=== PATIENT | female | born 1935 | race Caucasian/White ===

== ENCOUNTER → 2016-08-27 | Outpatient (CLI) | payer MEDICARE, OTHER ==
[~2016-08-27] MED LIST: BACTRIM DS 8001 TA1 PO; CLARITIN10 MG PO; DAYPRO600 M1 PO; INDOCIN25 MG PO; KEFLEX500 MG PO; LEVOFLOXACIN500 MG PO; MEDROL DOSEPAK4 MG PO; MOTRIN600 MG PO; NAPROSYN250 MG PO; PREDNICOT20 MG PO; ROBAXIN750 MG PO
== END | disposition home or self-care (01) ==
LOC: RAD 08:23
DX: S32.040A Wedge compression fracture of fourth lumbar vertebra, initial encounter for closed fracture (principal); M43.16 Spondylolisthesis, lumbar region; M48.07 Spinal stenosis, lumbosacral region; M81.0 Age-related osteoporosis without current pathological fracture; M62.830 Muscle spasm of back; R79.9 Abnormal finding of blood chemistry, unspecified; X58.XXXA Exposure to other specified factors, initial encounter; Y93.89 Activity, other specified; Y92.89 Other specified places as the place of occurrence of the external cause; Y99.8 Other external cause status

== ENCOUNTER → 2019-11-26 | Outpatient (CLI) | payer MEDICARE, OTHER ==
[~2019-11-26] MED LIST changes: +CEPHALEXIN500 M1 PO
== END | disposition home or self-care (01) ==
LOC: US 10:30
PROVIDERS: ATTEND Nurse Practitioner
DX: I73.9 Peripheral vascular disease, unspecified (principal)

== ENCOUNTER → 2020-03-03 | Outpatient (CLI) | payer MEDICARE, OTHER | END | disposition home or self-care (01) | LOC: WOUNDCARE 00:31 → EDSTATUS 12:24 → WOUNDCARE 12:25 | PROVIDERS: ATTEND Nurse Practitioner | DX: I87.311 Chronic venous hypertension (idiopathic) with ulcer of right lower extremity (principal); E11.622 Type 2 diabetes mellitus with other skin ulcer; L97.812 Non-pressure chronic ulcer of other part of right lower leg with fat layer exposed; S51.811D Laceration without foreign body of right forearm, subsequent encounter; E11.51 Type 2 diabetes mellitus with diabetic peripheral angiopathy without gangrene; E78.5 Hyperlipidemia, unspecified; Z90.710 Acquired absence of both cervix and uterus; Z86.73 Personal history of transient ischemic attack (TIA), and cerebral infarction without residual deficits; X58.XXXD Exposure to other specified factors, subsequent encounter ==

== ENCOUNTER → 2020-03-11 | Outpatient (CLI) | payer MEDICARE, OTHER | END | disposition home or self-care (01) | LOC: WOUNDCARE 00:06 | PROVIDERS: ATTEND Nurse Practitioner | DX: I87.311 Chronic venous hypertension (idiopathic) with ulcer of right lower extremity (principal); E11.622 Type 2 diabetes mellitus with other skin ulcer; L97.812 Non-pressure chronic ulcer of other part of right lower leg with fat layer exposed; S51.811D Laceration without foreign body of right forearm, subsequent encounter; E11.51 Type 2 diabetes mellitus with diabetic peripheral angiopathy without gangrene; E78.5 Hyperlipidemia, unspecified; Z90.710 Acquired absence of both cervix and uterus; Z86.73 Personal history of transient ischemic attack (TIA), and cerebral infarction without residual deficits; X58.XXXD Exposure to other specified factors, subsequent encounter ==

== ENCOUNTER → 2020-03-18 | Outpatient (CLI) | payer MEDICARE, OTHER | END | disposition home or self-care (01) | LOC: WOUNDCARE 03:12 | PROVIDERS: ATTEND Nurse Practitioner | DX: I87.311 Chronic venous hypertension (idiopathic) with ulcer of right lower extremity (principal); E11.622 Type 2 diabetes mellitus with other skin ulcer; L97.812 Non-pressure chronic ulcer of other part of right lower leg with fat layer exposed; S51.811D Laceration without foreign body of right forearm, subsequent encounter; E11.51 Type 2 diabetes mellitus with diabetic peripheral angiopathy without gangrene; E78.5 Hyperlipidemia, unspecified; Z90.710 Acquired absence of both cervix and uterus; Z86.73 Personal history of transient ischemic attack (TIA), and cerebral infarction without residual deficits; X58.XXXD Exposure to other specified factors, subsequent encounter ==

== ENCOUNTER 2021-09-13 18:56 | Emergency (ER) | payer MEDICARE, OTHER ==
[~2021-09-13] VITALS: Wt 49.9 kg
== END 2021-09-13 21:10 | disposition home or self-care (01) ==
LOC: ED 18:56
DX: S52.592A Other fractures of lower end of left radius, initial encounter for closed fracture (principal); Z79.2 Long term (current) use of antibiotics; W18.30XA Fall on same level, unspecified, initial encounter; Y93.89 Activity, other specified; Y92.89 Other specified places as the place of occurrence of the external cause; Y99.9 Unspecified external cause status

== ENCOUNTER → 2021-09-21 | Outpatient (CLI) | payer MEDICARE, OTHER | END | disposition home or self-care (01) | LOC: ORTHO 03:46 → WOUNDCARE 07:33 → ORTHO 07:36 | PROVIDERS: ATTEND Orthopaedic Surgery | DX: S52.532D Colles' fracture of left radius, subsequent encounter for closed fracture with routine healing (principal); M85.842 Other specified disorders of bone density and structure, left hand; X58.XXXD Exposure to other specified factors, subsequent encounter ==

== ENCOUNTER → 2021-10-05 | Outpatient (CLI) | payer MEDICARE, OTHER | END | disposition home or self-care (01) | LOC: ORTHO 00:48 | PROVIDERS: ATTEND Orthopaedic Surgery | DX: S52.532D Colles' fracture of left radius, subsequent encounter for closed fracture with routine healing (principal); M25.832 Other specified joint disorders, left wrist; X58.XXXD Exposure to other specified factors, subsequent encounter ==

== ENCOUNTER 2022-04-09 12:22 | Emergency (ER) | payer MEDICARE, OTHER ==
[~2022-04-09] VITALS: Ht 160 cm; Wt 39.9 kg
[2022-04-09 13:30] LABS: BASO # 0.1 10*3/uL (0.0-0.1); BASO % 0.8 % (0.0-1.0); EOS # 0.1 10*3/uL (0.0-0.4); EOS % 1.4 % (1.0-4.0); HEMATOCRIT 38.7 % (37.0-47.0); LYMPH # 2.2 10*3/uL (1.3-4.4); LYMPH % 32.7 % (27.0-41.0); MEAN CELL VOLUME 92.1 fl (81.0-99.0); MEAN CORPUSCULAR HGB 29.3 pg (27.0-31.0); MEAN CORPUSCULAR HGB CONC 31.8 g/dl (33.0-37.0); MEAN PLATELET VOLUME 9.5 fl (9.6-12.3); MONO # 0.5 10*3/uL (0.1-1.0); MONO % 7.3 % (3.0-9.0); NEUT # 3.8 10*3/uL (2.3-7.9); NEUT % 57.6 % (47.0-73.0); PLATELET COUNT AUTOMATED 179 10*3/uL (130-400); RED CELL DISTRI WIDTH 13.2 % (0-14.5); WHITE BLOOD COUNT 6.6 10*3/uL (4.8-10.8)
[2022-04-09 13:42] LABS: ACT PARTIAL THROMBO TIME 26.1 SECONDS (20.0-32.1); INTERNATIONAL NORM RATIO 0.9 (2.0-3.5)
[2022-04-09 13:45] LABS: ALKALINE PHOSPHATASE 96 U/L (46-116); BUN 17 mg/dl (9-23); CHLORIDE 107 mmol/L (98-107); LIPASE 46 U/L (12-53); POTASSIUM 3.9 mmol/L (3.4-5.1); SGPT/ALT 15 U/L (10-49); TOTAL PROTEIN 7.2 gm/dL (6.0-8.0)
[2022-04-09 16:05] VITALS: BP 139/75
[2022-04-09] MEDS ORDERED: CARAFATE1 G1 PO (16:13)
[2022-04-09] MEDS ORDERED: PROTONIX40 MG PO (16:13)
[2022-04-09 16:18] VITALS: BP 144/70
[2022-04-09 16:38] VITALS: BP 155/72
== END 2022-04-09 16:52 | disposition home or self-care (01) ==
LOC: ED 12:22
PROVIDERS: Emergency Medicine
DX: T18.128A Food in esophagus causing other injury, initial encounter (principal); Z90.710 Acquired absence of both cervix and uterus; X58.XXXA Exposure to other specified factors, initial encounter; Y93.89 Activity, other specified; Y92.89 Other specified places as the place of occurrence of the external cause; Y99.8 Other external cause status

== ENCOUNTER 2022-09-23 08:23 | Emergency (ER) | payer MEDICARE, OTHER ==
[~2022-09-23] VITALS: Wt 49.9 kg
[~2022-09-23 08:23] MED LIST changes: +CARAFATE1 G1 PO; +PROTONIX40 MG PO
== END 2022-09-23 10:42 | disposition home or self-care (01) ==
LOC: ED 08:23
DX: S32.049A Unspecified fracture of fourth lumbar vertebra, initial encounter for closed fracture (principal); R07.89 Other chest pain; Z79.2 Long term (current) use of antibiotics; Z79.899 Other long term (current) drug therapy; Z90.711 Acquired absence of uterus with remaining cervical stump; X50.9XXA Other and unspecified overexertion or strenuous movements or postures, initial encounter; Y93.89 Activity, other specified; Y92.89 Other specified places as the place of occurrence of the external cause; Y99.8 Other external cause status

== ENCOUNTER 2023-01-25 08:21 | Emergency (ER) | payer MEDICARE, OTHER ==
[~2023-01-25] VITALS: Ht 157.4 cm; Wt 44.2 kg
[2023-01-25 08:46] LABS: BASO % 0.2 % (0.0-1.0); EOS % 0.4 % (1.0-4.0); LYMPH # 1.6 10*3/uL (1.3-4.4); LYMPH % 29.1 % (27.0-41.0); MEAN CELL VOLUME 90.5 fl (81.0-99.0); MEAN CORPUSCULAR HGB CONC 32.1 g/dl (33.0-37.0); MEAN PLATELET VOLUME 9.7 fl (9.6-12.3); MONO # 0.4 10*3/uL (0.1-1.0); MONO % 6.4 % (3.0-9.0); NEUT # 3.6 10*3/uL (2.3-7.9); NEUT % 63.7 % (47.0-73.0); PLATELET COUNT AUTOMATED 144 10*3/uL (130-400); RED CELL DISTRI WIDTH 14.1 % (0-14.5); WHITE BLOOD COUNT 5.6 10*3/uL (4.8-10.8)
[2023-01-25 08:57] LABS: ACT PARTIAL THROMBO TIME 24.2 SECONDS (20.0-32.1)
[2023-01-25 09:16] LABS: ALKALINE PHOSPHATASE 85 U/L (46-116); BUN 18 mg/dl (9-23); CHLORIDE 109 mmol/L (98-107); LIPASE 44 U/L (12-53); POTASSIUM 3.6 mmol/L (3.4-5.1); SGPT/ALT 14 U/L (5-49); TOTAL PROTEIN 6.2 gm/dL (6.0-8.0)
[2023-01-25 09:41] LABS: BILIRUBIN Negative (Negative); BLOOD 1+ (Negative); CLARITY Clear (Clear); COLOR Yellow (Yellow); GLUCOSE Negative (Negative); KETONE Negative (Negative); LEUKO ESTERASE Negative (Negative); NITRITE Negative (Negative); SPECIFIC GRAVITY 1.015 (1.001-1.030); UROBILINOGEN 0.2 E.U./dl (0.0-1.0)
[2023-01-25 09:52] LABS: BACTERIA TRACE; HYALINE CAST 0-2; WBC 0-2 wbc/hpf (0-5)
[2023-01-25 09:53] LABS: EPITHELIAL CELLS 0-2; RBC 21-30 rbc/hpf (0-2)
[2023-01-25] MEDS ORDERED: ONDANSETRON4 MG SL (12:15)
== END 2023-01-25 12:24 | disposition home or self-care (01) ==
LOC: ED 08:21
PROVIDERS: Emergency Medicine
DX: U07.1 COVID-19 (principal); R11.2 Nausea with vomiting, unspecified; R10.2 Pelvic and perineal pain; Z90.710 Acquired absence of both cervix and uterus; Z79.899 Other long term (current) drug therapy

== ENCOUNTER → 2023-03-14 | Outpatient (CLI) | payer MEDICARE, OTHER ==
[~2023-03-14] MED LIST changes: +ONDANSETRON4 MG SL
[2023-03-14 12:06] LABS: BASO % 0.5 % (0.0-1.0); EOS # 0.1 10*3/uL (0.0-0.4); EOS % 1.6 % (1.0-4.0); HEMATOCRIT 37.5 % (37.0-47.0); LYMPH # 2.4 10*3/uL (1.3-4.4); LYMPH % 30.8 % (27.0-41.0); MEAN CELL VOLUME 92.1 fl (81.0-99.0); MEAN CORPUSCULAR HGB 28.5 pg (27.0-31.0); MEAN CORPUSCULAR HGB CONC 30.9 g/dl (33.0-37.0); MEAN PLATELET VOLUME 9.7 fl (9.6-12.3); MONO # 0.7 10*3/uL (0.1-1.0); MONO % 8.7 % (3.0-9.0); NEUT # 4.5 10*3/uL (2.3-7.9); NEUT % 58.1 % (47.0-73.0); PLATELET COUNT AUTOMATED 219 10*3/uL (130-400); RED BLOOD COUNT 4.07 10*6/uL (4.10-5.10); RED CELL DISTRI WIDTH 14.3 % (0-14.5); WHITE BLOOD COUNT 7.7 10*3/uL (4.8-10.8)
[2023-03-14 12:28] LABS: ALKALINE PHOSPHATASE 84 U/L (46-116); BUN 22 mg/dl (9-23); CHLORIDE 109 mmol/L (98-107); POTASSIUM 4.3 mmol/L (3.4-5.1); SGPT/ALT 12 U/L (5-49); TOTAL PROTEIN 6.9 gm/dL (6.0-8.0)
[2023-03-14 12:32] LABS: VITAMIN D, 25-HYDROXY 43.9 ng/mL (30-100)
== END | disposition home or self-care (01) ==
LOC: LAB 11:18
PROVIDERS: Student in an Organized Health Care Education/Training Program; ATTEND Family Medicine
DX: N18.32 Chronic kidney disease, stage 3b (principal); E55.9 Vitamin D deficiency, unspecified; R73.09 Other abnormal glucose

== ENCOUNTER → 2023-09-20 | Outpatient (CLI) | payer MEDICARE, OTHER ==
[~2023-09-20] MED LIST changes: +ASPIRIN CHILDRE81 MG PO; +DENOSUMAB 60 MG/ML SYRINGE SC ONE; +DIOVAN40 MG PO; +SIMVASTATIN20 MG PO
== END | disposition home or self-care (01) ==
LOC: INJECTION 00:47
PROVIDERS: ATTEND Student in an Organized Health Care Education/Training Program
DX: M19.90 Unspecified osteoarthritis, unspecified site (principal); Z90.710 Acquired absence of both cervix and uterus

== ENCOUNTER → 2023-10-07 | Outpatient (CLI) | payer MEDICARE, OTHER ==
[~2023-10-07] MED LIST changes: -DENOSUMAB 60 MG/ML SYRINGE SC ONE
== END | disposition home or self-care (01) ==
LOC: RAD 01:10
PROVIDERS: ATTEND Student in an Organized Health Care Education/Training Program
DX: S32.010A Wedge compression fracture of first lumbar vertebra, initial encounter for closed fracture (principal); M81.0 Age-related osteoporosis without current pathological fracture; X58.XXXA Exposure to other specified factors, initial encounter; Y93.89 Activity, other specified; Y92.89 Other specified places as the place of occurrence of the external cause; Y99.8 Other external cause status

== ENCOUNTER → 2024-03-22 | Outpatient (CLI) | payer MEDICARE, MEDICAID ==
[~2024-03-22] MED LIST changes: +DENOSUMAB 60 MG/ML SYRINGE SC ONE
[2024-03-22 10:28] VITALS: BP 123/51
== END ==
LOC: INJECTION 03:10
PROVIDERS: ATTEND Family Medicine
DX: M81.0 Age-related osteoporosis without current pathological fracture (principal); I10 Essential (primary) hypertension; Z87.891 Personal history of nicotine dependence

== ENCOUNTER → 2024-09-24 | Outpatient (CLI) | payer MEDICARE, BC ==
[2024-09-24 09:30] VITALS: BP 115/69
== END | disposition home or self-care (01) ==
LOC: INJECTION 08:59
PROVIDERS: ATTEND Family Medicine
DX: M81.0 Age-related osteoporosis without current pathological fracture (principal)